=== PATIENT | male | born 1965 | race Caucasian/White ===

== ENCOUNTER → 2019-01-16 05:50 | Outpatient (CLI) | payer OTHER, BC, SELFPAY ==
--- NOTE | 2019-01-16 05:59 | NM_ITS ---
CARDIOLITE SPECT [facility]ESS: History: Coronary artery disease, fatigue, hypertension, hyperlipidemia, atypical chest pain, shortness of breath. Procedure: Exercise on Ruel protocol 9 minutes and 30 seconds, resting heart rate was 83 bpm resting blood pressure 155/83, with the exercise maximum heart rate achieved was 1 36 bpm which is less than 85% of the maximum predicted heart rate and a blood pressure was 167/90. Test was started due to shortness of breath patient denied any complained of chest pain. Patient has good exercise capacity achieved 10.1mets of workload on treadmill, the blood pressure response to exercise was abnormal. Electrocardiogram: Single electrocardiogram showed sinus rhythm, with exercise there is a millimeters ST segment depression noted from the baseline EKG more pronounced in the inferior leads. The EKG portion of the exercise Myoview is positive for ischemia. Cardiac stress and resting SPECT images: Cardiac stress and resting SPECT images were obtained using technetium 99 Myoview 32.3 mCi at stress than 10.6 mCi at rest. Gated SPECT further analysis of segmental wall motion and calculation of the ejection fraction also done. Cardiac stress and resting SPECT images show a myocardial activity without segmental perfusion abnormality, computer derived ejection fraction is 61% with no regional wall motion abnormality, right ventricle is normal size and contractility. Conclusion: 1. The EKG portion of the exercise Myoview is positive for ischemia, patient has good exercise capacity achieved 10.1mets of workload on treadmill, the blood pressure response to exercise was abnormal, test was started due to shortness of breath. 2. No scintigraphic evidence of reversible ischemia seen at this level of exercise as, computer derived ejection fraction is extremely 61% with no regional wall motion abnormality, right ventricle is normal size and contractility. 3. Abnormal exercise Myoview study due to abnormal EKG with exercise.
--- NOTE | 2019-01-16 05:59 | CA_ITS ---
PROCEDURE: 2-D M-mode and color Doppler study INDICATIONS FOR THE TEST: Chest pain + COPD Heart Murmur Tobacco Smoking Palpitations Fatigue Syncope Edema Hypertension+Diabetes Mellitus Rheumatic Fever SOB+BAILEY Obesity Hyperlipidemia+ Family History HD Additional History CAD PATIENT INFORMATION HEIGHT:69 WEIGHT:219 GENDER: Male B/P:124/81 2-D/M-MODE INTERPRETATION: 2-D MEASUREMENTS OBSERVED VALUES IN CMS Right Ventricular Dimension (RVDd) 2.4 Interventricular Septum (Thickness)(IVsd) 1.0 Left Ventricular Internal Dimensions(LVIDd) 4.7 Left Ventricular Posterior Wall (Thickness)(LVPWd) 1.0 Aortic Root 3.5 Aortic Cusp Separation 2.0 Left Atrial Dimensions (LAD) 3.6 2D 1. Left atrium is qualitatively mildly enlarged, left ventricle is normal size, mild concentric left ventricular hypertrophy, visually estimated ejection fraction 55% with no regional wall motion abnormality. 2. The right atrium and right ventricle are normal size and contractility. 3. The aortic valve is minimally thickened fibrosed. 4. The mitral and tricuspid valve are grossly normal. 5. The pulmonic valve is poorly visualized. 6. No significant pericardial effusion noted. DOPPLER INTERROGATION: Doppler interrogation of the aortic, mitral and tricuspid valve reveals presence of mild mitral and tricuspid regurgitation, tricuspid regurgitation jet velocity is inadequate for calculation of the right ventricular systolic pressure, grade 1 diastolic dysfunction seen without tissue Doppler evidence of raised left atrial pressure. CONCLUSION: 1. Mildly enlarged left atrium, normal left ventricular size, mild concentric left ventricular hypertrophy, visually estimated ejection fraction 55% with no regional wall motion abnormality, grade 1 diastolic dysfunction seen without tissue Doppler evidence of raised left atrial pressure. 2. Mild mitral and tricuspid regurgitation 3. No significant pericardial effusion noted.
--- NOTE | 2019-01-16 08:24 | HMH.ITSHM ---
Current Home Medications as stated by this patient Aj Beasley or public relations representative. [] lipitor asa coreg brilinta zantac ativaN
== END ==
PROVIDERS: Visit Provider Urology
DX: I25.10 Atherosclerotic heart disease of native coronary artery without angina pectoris (principal); R06.02 Shortness of breath; E78.49 Other hyperlipidemia; I10 Essential (primary) hypertension; I25.118 Atherosclerotic heart disease of native coronary artery with other forms of angina pectoris; G47.33 Obstructive sleep apnea (adult) (pediatric)
CPT/HCPCS: 78452; 93017; 93306; A9502

== ENCOUNTER → 2020-04-07 14:05 | Outpatient (CLI) | payer OTHER, BC, SELFPAY ==
[2020-04-07 15:29] LABS: Alanine Aminotransferase 28 U/L (12-78); Albumin Level 4.6 g/dl (3.5-5.0); Alkaline Phosphatase 78 U/L (38-126); Aspartate Amino Transferase 23 U/L (17-59); Bilirubin,Direct 0.1 mg/dl (0.0-0.4); Bilirubin,Indirect 0.6 mg/dL (0.0-0.9); Bilirubin,Total 0.7 mg/dl (0.2-1.3); Bilirubin,Unconjugated 0.6 mg/dL (0.0-1.1); Chol/HDL Ratio 3.3 (1-3.5); Cholesterol 156 mg/dl (140-200); HDL Cholesterol 47 mg/dl (40-60); Triglycerides 288 mg/dl (30-150); VLDL Cholesterol 58 mg/dL (0-40)
[2020-04-07 15:41] LABS: Direct LDL Cholesterol 86.98 mg/dL (100-129)
== END ==
PROVIDERS: Visit Provider Urology
DX: E78.2 Mixed hyperlipidemia (principal); I10 Essential (primary) hypertension; I25.10 Atherosclerotic heart disease of native coronary artery without angina pectoris; G47.33 Obstructive sleep apnea (adult) (pediatric)
CPT/HCPCS: 36415; 80061; 80076

== ENCOUNTER → 2021-10-12 12:57 | Outpatient (CLI) | payer OTHER, BC, SELFPAY ==
--- NOTE | 2021-10-12 | CA_ITS ---
APPROVED REPORT Exam: Pharmacologic Technologist: Janna Andrade, Ht: 5 ft 10 in Wt: 235 lbs BSA: 2.24 m2 HR: 90 bpm BP: 146/96 mmHg Rhythm: NSR, NSSTTW ABNORMALITIES Medical History Medications: Asa,,,,, Atorvastatin,,,,, Carvedilol,,,,, FluTICASONE,,,,, TicaAGRELOR,,,,, TAdalafil,,,,, Allergies: No known drug allergies Stress Test Details Test: LEXISCAN HR Resting HR: 85 bpm Max Heart Rate (APMHR): 163.734478 bpm Max HR Achieved: 113 bpm Target HR (85% APMHR): 138.386651 bpm % of APMHR: 69.33 Recovery HR: 102 bpm BP Resting BP: 146/96 mmHg Max BP: 157/94 mmHg Recovery BP: 157.0/94.0 mmHg ECG Resting ECG: NSR, NSSTTW ABNORMALITIES Clinical Reason for Termination: Completed Protocol Exercise duration: 04:01 min Highest Stage Achieved: Stress ECG Conclusion PT HAD NO CP. <1.5MM ST SEGMENT CHANGES. NON DIAGNOSTIC Test Summary REST 02:48 . . 85 . 146/ 96 . . Stage 1 01:00 . . 111 . . . . Stage 2 01:00 . . 112 . 125/ 85 . . Stage 3 01:00 . . 102 . 151/ 99 . . Stage 4 01:00 . . 105 . 149/ 98 . . Stage 4 01:01 . . 103 . 149/ 98 . Stop exercise at 04:01 RECOVERY 01:00 . . 101 . . . . RECOVERY 02:00 . . 104 . 141/101 . . RECOVERY 03:00 . . 102 . 157/ 94 . . RECOVERY 03:21 . . 99 . 157/ 94 . . Electronically signed by : Claude Sher MD 10/12/2021 20:47:21
--- NOTE | 2021-10-12 13:03 | NM_ITS ---
APPROVED REPORT Exam: Nuclear Stress Test Indication: CAD, 2 STENTS, HTN, HYPERLIPIDEMIA, FM HX, SOB Patient Location: Outpatient Stress Tech: Janna Andrade [place] Tech:Starr ConteYUNG RT (R)(N)(M) Ht: 5 ft 9 in Wt: 220 lbs HR: 90 bpm BP: 146/96 mmHg BSA: 2.15 m2 BMI: 32.4 History: CAD, 2 STENTS, HTN, HYPERLIPIDEMIA, FM HX, SOB Procedure: Patient received a 0.4 mg of intravenous Lexiscan, resting heart rate 90 bpm, resting blood pressure 146/96 mmHg, with Lexiscan maximum heart rate achived was 112 bpm which is Less than 85 % of the maximum predicted heart rate and blood pressure was 121/85 mmHg. With Lexiscan, patient denied any complaint of chest pain. Electrocardiogram Resting electrocardiogram shows sinus rhythm, with Lexiscan there is less than 1.[address] segment depression noted from the baseline EKG. The EKG portion of the Lexiscan is nondiagnostic. Cardiac Stress and Resting SPECT Images: Cardiac Stress and Resting SPECT images were obtained using technetium 99m Myoview 30.8 mCi stress and 10.10 mCi at rest. Gated SPECT for analysis of segmental wall motion and calculation of the ejection fraction also done. Prone images were also obtained. Cardiac stress and rest SPECT may show uniform myocardial activity without segmental perfusion abnormality, computer derived ejection fraction is 60% with no regional wall motion abnormality, however there is transient ischemic dilatation of the left ventricle seen, raising the concerns for presence of multivessel coronary artery disease or balanced ischemia. Conclusion: 1. The EKG portion of the Lexiscan is nondiagnostic. 2. No scintigraphic evidence of reversible ischemia seen, computer derived ejection fraction is 60% with no regional wall motion abnormality, there is transient ischemic dilatation of the left ventricle seen, raising the concern for presence of multivessel coronary artery disease or balanced ischemia. 3. Abnormal Lexiscan Myoview study. Electronically signed by : Claude Sher MD 10/12/2021 20:59:17
--- NOTE | 2021-10-12 14:11 | CA_ITS ---
APPROVED REPORT EXAM: Comprehensive 2D, Doppler, and color-flow Echocardiogram [employer]: TONYA Grande, RVS Ht: 5 ft 10 in Wt: 235lbs BSA: 2.24 BP: 130/90 mmHg Indications: Shortness of Breath, Dyspnea, CAD, Hyperlipidemia, Hypertension/HDD, Ex-smoker, Diastolic dysfunction Echo Enhancing Agent Comments: TDS: poor acoustics throughout exam 2D Dimensions IVSd 0.99 cm LVEF (Visual) 42.80 % PWd 0.99 cm LA Volume 25.10 mL LVDd 5.49 cm LA Volume Index 11.535439 mL/m2 (M/F) 16-34 LVDs 4.32 cm LVOT 1.96 cm (M/F) 1.5-2.5 M-Mode Dimensions RVDd 2.41 cm (0.9-2.6) LA Diam 3.31 cm (1.9-4.0) LVDd 4.95 cm (3.5-5.7) Ao Diam 3.67 cm (2.0-3.7) LVDs 2.66 cm (3.5-5.7) IVSd 1.05 cm (0.6-1.1) PWd 1.09 cm (0.6-1.1) EF (Teich) 77.50% EPSs 0.20 cm FS 46.30% EDV (Teich) 115.50 mL TAPSE 1.83 (<1.7) ESV (Teich) 26.00 mL LV Diastology E Decel Time 207.00 (160-240 msec) E/A Ratio 0.83 MED E' 7.80 (< 7 cm/sec) MED A' 11.20 cm/s E'/MED E' Ratio 8.91 (>14) LAT E' 8.40 (<10 cm/sec) LAT A' 14.00 cm/s E/LAT E' Ratio 8.27 (>14) Aortic Valve LVOT Max 89.00 (70-110 cm/s) LVOT VTI 19.90 cm AoV Peak Quincy. 101.00 (50-130 cm/s) AO Peak GR. 4.10 mmHg AO Mean GR. 2.30 (<5 mmHg) AO VTI 19.07 (18-25 cm) CORINNE (VTI) 3.15 (2.5-4.5 cm2) Mitral Valve MV A Velocity 84.00 (40-130 cm/s) E/A Ratio 0.83 MV Decel. Time 207.00 (160-240 ms) Pulmonary Valve [place] End VMAX 138.00 cm/s Tricuspid Valve TR P. Velocity 245.00 cm/s Left Ventricle Left atrium is mildly enlarged, left ventricle normal size, mild concentric left ventricular hypertrophy, visually estimated ejection fraction 55% with no regional wall motion abnormality, grade 1 diastolic dysfunction seen without tissue Doppler evidence of raise left atrial pressure. Right Ventricle Right atrium and right ventricle are normal size and contractility. Aortic Valve Aortic valve is minimally thickened and fibrosed, there is no aortic stenosis or aortic insufficiency. Mitral Valve Mitral valve is grossly normal, there is trace mitral regurgitation. Tricuspid Valve Tricuspid grossly normal, there is trace tricuspid regurgitation, tricuspid regurgitation jet velocity is inadequate for calculation of the right ventricular systolic pressure. Pulmonic Valve Pulmonic valve is poorly visualized. Great Vessels Aortic root is normal size. Inferior vena cava is poorly visualized. Pericardium No significant pericardial effusion noted. Conclusion 1. Mildly enlarged left atrium, normal left ventricular size, mild concentric left ventricular hypertrophy, visually estimated ejection fraction 55% with no regional wall motion abnormality, grade 1 diastolic dysfunction seen without tissue Doppler evidence of raise left atrial pressure. 2. Trace mitral and tricuspid regurgitation. 3. No significant pericardial effusion. 4. Inferior vena cava is poorly visualized. Electronically signed by : Claude Sher MD 10/12/2021 21:11:33
== END ==
PROVIDERS: Visit Provider Urology
DX: I25.10 Atherosclerotic heart disease of native coronary artery without angina pectoris (principal); I51.89 Other ill-defined heart diseases; E78.2 Mixed hyperlipidemia; G47.33 Obstructive sleep apnea (adult) (pediatric); Z02.89 Encounter for other administrative examinations; Z87.891 Personal history of nicotine dependence
CPT/HCPCS: 78452; 93017; 93306; A9502; J2785

== ENCOUNTER → 2022-04-25 12:00 | Outpatient (CLI) | payer OTHER, BC, SELFPAY ==
[2022-04-25 12:22] LABS: Basophils # 0.1 K/mm3 (0-0.2); Basophils % 1.5 % (0.1-2.0); Eosinophils # 0.5 K/mm3 (0.0-0.4); Eosinophils % 7.1 % (0.1-12.0); Hematocrit 53.8 % (42.0-52.0); Hemoglobin 17.4 g/dL (14.1-18.0); Lymphocytes # 2.4 K/mm3 (0.7-4.5); Lymphocytes % 31.9 % (10-50); Mean Corpuscular HGB Conc 32.4 g/dL (31.8-35.4); Mean Corpuscular Hemoglobin 32.4 pg (27.0-31.2); Mean Corpuscular Volume 99.9 fl (80-94); Mean Platelet Volume 7.4 fl (7.4-10.4); Monocytes # 0.5 K/mm3 (0.1-1.0); Monocytes % 6.6 % (1.7-9.3); Neutrophils % 52.9 % (37.0-80.0); Platelet Count 227 K/mm3 (142-424); Red Blood Count 5.38 M/mm3 (4.60-6.20); Red Cell Distribution Width 13.7 % (11.5-17.5); White Blood Count 7.6 K/mm3 (4.8-10.8)
[2022-04-25 12:58] LABS: Chloride 106 mmol/L (98-107); Potassium 4.5 mmoL/L (3.5-5.1); Sodium 140 mmol/L (136-145)
[2022-04-25 13:00] LABS: Alanine Aminotransferase 23 U/L (12-78); Aspartate Amino Transferase 25 U/L (17-59); Bilirubin,Unconjugated 0.6 mg/dL (0.0-1.1); Blood Urea Nitrogen 18 mg/dl (9-20); Estimated Glomerular Filt Rate 69 ml/min (>60); GFR (African American) 83 ML/MIN (>60)
[2022-04-25 13:01] LABS: Albumin Level 4.6 g/dl (3.5-5.0); Alkaline Phosphatase 88 U/L (38-126); Anion Gap 13.5 mEq/L (5-15); Bilirubin,Direct 0.2 mg/dl (0.0-0.4); Bilirubin,Indirect 0.5 mg/dL (0.0-0.9); Bilirubin,Total 0.7 mg/dl (0.2-1.3); Calcium 9.3 mg/dl (8.4-10.2); Carbon Dioxide 25 mmol/L (22.0-30.0); Chol/HDL Ratio 3.5 (1-3.5); Cholesterol 140 mg/dl (140-200); Glucose 107 mg/dl (74-100); HDL Cholesterol 40 mg/dl (40-60); Magnesium 1.8 mg/dl (1.6-2.3); Total Protein,Serum 6.9 g/dl (6.3-8.2); Triglycerides 127 mg/dl (30-150); VLDL Cholesterol 25 mg/dL (0-40)
[2022-04-25 13:18] LABS: Free T4 (Free Thyroxine) 0.88 ng/dl (0.78-2.19)
[2022-04-25 13:32] LABS: Thyroid Stimulating Hormone 1.05 uIU/mL (0.465-4.68)
[2022-04-25 13:40] LABS: Prostate Specific Ag Screen 0.7 ng/ml (0.0-4.0)
[2022-04-26 13:49] LABS: Direct LDL Cholesterol 74 mg/dL (100-129)
== END ==
PROVIDERS: PCP Family Medicine; Visit Provider Internal Medicine
DX: I25.10 Atherosclerotic heart disease of native coronary artery without angina pectoris (principal); I10 Essential (primary) hypertension; E78.2 Mixed hyperlipidemia; G47.33 Obstructive sleep apnea (adult) (pediatric); Z12.5 Encounter for screening for malignant neoplasm of prostate; Z79.899 Other long term (current) drug therapy
CPT/HCPCS: 36415; 80048; 80061; 80076; 83735; 84439; 84443; 85025; G0103

== ENCOUNTER → 2023-05-24 07:52 | Outpatient (CLI) | payer BC, SELFPAY ==
--- NOTE | 2023-05-24 | CA_ITS ---
APPROVED REPORT Exam: Pharmacologic Technologist: Janna Andrade, Ht: 5 ft 10 in Wt: 232 lbs BSA: 2.22 m2 HR: 85 bpm BP: 123/92 mmHg Rhythm: SR Medical History Medical History: HTN, Hyperlipidemia Medications: Lisinopril,,,,, Aspirin,,,,, Atorvastatin,,,,, Carvedilol,,,,, Ticagrelor,,,,, Liraglutide,,,,, FluTICASONE Propinae,,,,, TALDALAFIL,,,,, Allergies: No known drug allergies Cardiac Risk Factors: HTN, Hyperlipidemia, FHX of CAD, Smoking Stress Test Details Test: LEXISCAN HR Resting HR: 77 bpm Max Heart Rate (APMHR): 161 bpm Max HR Achieved: 110 bpm Target HR (85% APMHR): 137 bpm % of APMHR: 68 Recovery HR: 93 bpm BP Resting BP: 123/92 mmHg Max BP: 132/77 mmHg Recovery BP: 122.0/85.0 mmHg ECG Resting ECG: SR Stress ECG: No significant ST changes Arrhythmia: None Clinical Exercise duration: 04:01 min Highest Stage Achieved: Stress ECG Conclusion PT HAD SOA ECTOPY/ARRHYTHMIA: NONE NO SIGNIFICANT ST CHANGES CONCLUSION UNREMARKABLE LEXISCAN ECG STRESS TEST. MYOVIEW IMAGES ARE REPORTED SEPARATELY. Test Summary REST 01:51 . . 77 . 123/ 92 . . Stage 1 . . . . . . . Myoview Injected Stage 1 01:00 . . 107 . . . . Stage 2 01:00 . . 108 . 106/ 75 . . Stage 3 01:00 . . 102 . 111/ 81 . . Stage 4 01:00 . . 96 . 121/ 88 . . Stage 4 01:01 . . 96 . 121/ 88 . Stop exercise at 04:01 RECOVERY 01:00 . . 93 . 132/ 77 . . RECOVERY 02:00 . . 95 . 122/ 85 . . RECOVERY 02:43 . . 94 . 122/ 85 . . Electronically signed by : Jeimy Dow MD 06/01/2023 19:44:21
--- NOTE | 2023-05-24 07:52 | NM_ITS ---
APPROVED REPORT Exam: Nuclear Stress Test Indication: physical..hypertension..high cholesterol..family hx Patient Location: Outpatient Stress Tech: Janna Andrade [place] Tech:Simona Cullen YUNG RT(R)(N) Ht: 5 ft 9 in Wt: 204 lbs HR: 77 bpm BP: 123/92 mmHg BSA: 2.08 m2 Rhythm: NSR TID: 1.12 BMI: 30.1 History: physical..hypertension..high cholesterol..family hx Procedure: Patient received 0.4 mg of intravenous Lexiscan, resting heart rate 77 bpm, resting blood pressure 123/92 mmHg, with Lexiscan maximum heart rate achieved was 110 bpm which is 85 % of the maximum predicted heart rate and blood pressure was 132/77 mmHg. With Lexiscan, patient denied any complaint of chest pain. Cardiac Stress and Resting SPECT Images: Cardiac Stress and Resting SPECT images were obtained using technetium 99m Myoview 31.2 mCi stress and 10.81 mCi at rest. Resting and stress imaging in supine position demonstrate a medium sized, moderate, fixed perfusion defect in the inferior LV wall. This is no longer visualized with prone stress imaging. Findings are suggestive of diaphragmatic attenuation. Gated imaging demonstrates normal global and regional LV systolic function. LVEF is 54%. Conclusion: Diaphragmatic attenuation is present. No definite fixed or reversible perfusion defects. Gated imaging demonstrates normal global and regional LV systolic function. LVEF is 54%. Electronically signed by : Jeimy Dow MD 06/01/2023 19:47:16
--- NOTE | 2023-05-24 09:30 | CA_ITS ---
APPROVED REPORT EXAM: Comprehensive 2D, Doppler, and color-flow Echocardiogram Practice Manager: Maggie Joseph CRT Ht: 5 ft 10 in Wt: 232lbs BSA: 2.22 BP: 112/86 mmHg Rhythm: 68 Indications: Peripheral Edema, CAD, Hyperlipidemia, Hypertension/HDD,DD, DANIEL 2D Dimensions LVOT 1.95 cm (M/F) 1.5-2.5 LA Volume 22.20 mL LA Volume Index 9.70 mL/m2 (M/F) 16-34 M-Mode Dimensions RVDd 2.25 cm (0.9-2.6) LA Diam 2.91 cm (1.9-4.0) LVDd 4.26 cm (3.5-5.7) Ao Diam 4.32 cm (2.0-3.7) LVDs 2.58 cm (3.5-5.7) IVSd 1.32 cm (0.6-1.1) PWd 0.61 cm (0.6-1.1) EF (Teich) 70.40% FS 39.40% EDV (Teich) 81.30 mL TAPSE 2.34 (<1.7) ESV (Teich) 24.10 mL LV Diastology E Decel Time 240.00 (160-240 msec) E/A Ratio 0.94 MED E' 7.50 (< 7 cm/sec) MED A' 9.70 cm/s E'/MED E' Ratio 9.27 (>14) LAT E' 7.90 (<10 cm/sec) LAT A' 15.30 cm/s E/LAT E' Ratio 8.80 (>14) Aortic Valve AO Peak GR. 5.10 mmHg Mitral Valve MV A Velocity 74.00 (40-130 cm/s) E/A Ratio 0.94 MV Decel. Time 240.00 (160-240 ms) Pulmonary Valve PV Peak Velocity 60.00 (50-150 cm/s) Tricuspid Valve TR P. Velocity 255.00 cm/s RAP Estimate 10.00 mmHg RVSP 36.10 mmHg Left Ventricle The left ventricle is normal size. The left ventricular systolic function is normal. The left ventricular ejection fraction is within the normal range. Proximal septal thickening is noted. There is normal LV segmental wall motion. The left ventricular diastolic function is normal. LVEF is 65%. Right Ventricle The right ventricle is normal size. The right ventricular systolic function is normal. Atria The left atrium size is normal. The right atrium size is normal. There is no Doppler evidence of interatrial shunt. Aortic Valve The aortic valve opens well. There is no aortic valvular stenosis. No aortic regurgitation is present. Mitral Valve The mitral valve is normal in structure. No evidence of mitral valve stenosis. Trace mitral regurgitation. Tricuspid Valve The tricuspid valve leaflets are thin and pliable. Trace tricuspid regurgitation. RVSP is 20-25 mmHg. Pulmonic Valve The pulmonary valve is normal in structure. Trace pulmonic regurgitation. Great Vessels The aortic root is normal in size. The ascending aorta is normal in size. IVC is normal in size and collapses >50% with inspiration. Pericardium There is no pericardial effusion. Other Information Study Quality: Fair Conclusion Normal biventricular systolic function. No significant valvular stenosis or regurgitation. Electronically signed by : Jeimy Dow MD 05/27/2023 15:25:39
== END ==
PROVIDERS: PCP Family Medicine; Visit Provider Nurse Practitioner
DX: I25.10 Atherosclerotic heart disease of native coronary artery without angina pectoris (principal); I10 Essential (primary) hypertension; I51.89 Other ill-defined heart diseases; E78.2 Mixed hyperlipidemia; G47.33 Obstructive sleep apnea (adult) (pediatric); Z87.891 Personal history of nicotine dependence
CPT/HCPCS: 78452; 93017; 93306; A9502; J2785